=== PATIENT | male | born 1975 | race Caucasian/White ===

== ENCOUNTER 2025-05-22 12:18 | Emergency (ER) | payer BC, SELFPAY ==
[2025-05-22 12:33] VITALS: BP 118/74; PULSE 73; RESP 18; TEMP 37.3; O2SAT 98
[2025-05-22 12:40] VITALS: BP 118/74; PULSE 73; RESP 18; TEMP 37.3; O2SAT 98
[2025-05-22 13:38] LABS: Abs Immature Grans 0.02 10^3/uL (0.0-0.06); HCT 36.5 % (40.0-50.0); HGB 12.0 g/dL (13.5-17.5); Immature Grans % 0.3 %; MCH 28.8 pg (27.0-33.0); MCHC 32.9 % (32.0-36.0); MCV 88 fL (80-95); MPV 10.8 fL (8.0-11.0); Platelet Count 153 10^3/uL (130-400); RBC 4.16 10^6/uL (4.36-5.78); RDW 13.1 % (11.8-14.1); RDW-SD 42.2 fL; WBC 6.44 10^3/uL (4.4-10.8)
[2025-05-22 13:46] LABS: Glucose Negative (Negative)
[2025-05-22] MEDS: Normal Saline - Diluent 50 ML VIAL IJ (13:53)
[2025-05-22] MEDS: Omnipaque 350 MG/ML 100 ML BTL 75 ML IJ (13:55)
--- NOTE | 2025-05-22 13:56 | DI.CT_ITS ---
Exam(s) CT ABDOMEN PELVIS W EXAM: CT ABDOMEN PELVIS W CLINICAL HISTORY: known kidney stone, 2ndary trauma/hematuria. TECHNIQUE: Imaging Protocol: Axial computed tomography images with coronal and sagittal reformatted images were created and reviewed CONTRAST MATERIAL: Intravenous: Omnipaque 350 Contrast volume:75 ml Oral: no COMPARISON: No exams were available for comparison FINDINGS: ABDOMEN and PELVIS: Exam mildly limited by streak artifact secondary to arm positioning peer Lung Bases: No acute findings. Liver: Normal density. No suspicious mass. Gallbladder and biliary tract: No radiodense calculus. No wall thickening or pericholecystic fluid. No biliary dilation. Pancreas: Normal density. No abnormal calcifications or inflammatory process. No evidence of mass. Spleen: Normal. Kidneys: Normal size, contour and axis. Small nonobstructing stone near the upper pole of the left kidney. No obstructive uropathy. No suspicious masses seen. Adrenal glands: No masses seen. Vasculature: Abdominal aorta non-dilated. Soft tissues: Increased soft tissue density in the subcutaneous fat of the left upper pelvis, at the level of the iliac crest. No focal hematoma. Bladder: No gross wall thickening. No calculi.No focal mass. Bowel: No obstruction. No bowel wall thickening. Appendix normal.Stool present throughout the colon may indicate an element of constipation. Peritoneal cavity: No ascites. No focal collection. No mesenteric inflammatory response. No free air. Bones: Mild degenerative changes and mild scoliosis. No evidence of spine or pelvic fracture. Reproductive organs: Unremarkable. Lymph nodes: No pathologically enlarged lymph nodes. IMPRESSION:: Soft tissue swelling at the lateral left hip. No evidence of fracture. No evidence of organ injury. Small nonobstructing stone near the upper pole of the left kidney. No evidence of hydronephrosis. RADIATION DOSE DELIVERED: Total DLP DATA REPOSITORY: All CT scans at this facility are submitted to the National Radiology Data Registry (NRDR) Dose Index Registry (DIR) with the [employer] ([employer]). RADIATION OPTIMIZATION: All CT scans at this facility use at least one of these dose optimization techniques: automated exposure control; mA and/or kV adjustment per patient size (includes targeted exams where dose is matched to clinical indication); or iterative reconstruction.
[2025-05-22 13:59] LABS: WBC 0-2 HPF (0-5)
[2025-05-22 14:00] LABS: C & S Indicated? No
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
[2025-05-22 14:20] LABS: ALT 32 U/L (16-63); AST 44 U/L (15-37); Albumin 3.8 g/dL (3.4-5.0); Alkaline Phosphatase 58 U/L (46-116); Anion Gap 7.6 mmol/L (3-11); BUN 16 mg/dL (7-18); Bilirubin, Total 0.7 mg/dL (0.2-1.0); CO2 30.4 mmol/L (21.0-32.0); Calcium 8.9 mg/dL (8.5-10.1); Chloride 104 mmol/L (98-107); Estimated GFR 102.76 (mL/min/1.73m2); Glucose 116 mg/dL (74-106); Potassium 3.3 mmol/L (3.5-5.1); Sodium 142 mmol/L (136-145); Total Protein 7.2 g/dL (6.4-8.2)
[2025-05-22 15:01] VITALS: BP 117/67; PULSE 67; RESP 16; O2SAT 99
== END 2025-05-22 15:01 | disposition home or self-care (01) ==
PROVIDERS: Emergency Provider Physician Assistant
DX: R31.9 Hematuria, unspecified (principal); N20.0 Calculus of kidney
CPT/HCPCS: 99285; 99283; 36415; 80053; 74177; 81003; 81015; 85025; J3490